=== PATIENT | female | born 1955 | race Caucasian/White ===

== ENCOUNTER 2021-10-02 14:26 | Outpatient (CLI) | payer OTHER, SELFPAY | END 2021-10-02 23:59 | disposition home or self-care (01) | LOC: BIMLAB 14:27 | PROVIDERS: PCP Internal Medicine; Referring Provider Internal Medicine; Visit Provider Internal Medicine | DX: R05.9 Cough, unspecified (principal); Z20.822 Contact with and (suspected) exposure to COVID-19 | CPT/HCPCS: 87635; U0003; U0005 ==

== ENCOUNTER → 2021-10-22 | Outpatient (CLI) | payer OTHER, SELFPAY ==
--- NOTE | 2021-10-22 13:51 | BI_ITS ---
MAMMOGRAPHY - BILATERAL SCREENING REASON FOR EXAM: Female, 66 years old. Routine annual screening examination. PERTINENT HISTORY: Personal history of breast cancer. Prior right lumpectomy and radiation treatment. Remote left excisional breast biopsy. TECHNIQUE: Digital bilateral breast fidelina (3D mammographic acquisition) in the CC and MLO projections. 2-D mediolateral oblique (MLO) and craniocaudad (CC) views of both breasts were obtained. CAD: Full Field Digital Mammography with Computer Added Detection was performed. COMPARISON: Comparison is made with prior outside examination dated 12/07/2019. FINDINGS: Breast Composition: There are scattered areas of fibroglandular density. There are no dominant masses or suspicious calcifications. The patient is status post lumpectomy in the upper lateral aspect of the right breast with resultant breast deformity. No other significant abnormalities are identified. There has been no significant change since the prior study. BI/SCRN MAMM (CAD)W/FIDELINA BILAT IMPRESSION: Stable bilateral screening mammogram. Yearly follow-up mammogram recommended. (A) ASSESSMENT CATEGORY: BIRADS Category 2: Benign. A letter regarding these results will be sent to the patient by the facility within 30 days. Approximately 10% of breast cancers are not detected by mammography. A normal mammogram should not delay biopsy of a clinically suspicious abnormality. [id number] Electronically Signed: Xavier Sierra MD at 15:26 EDT ,
== END | disposition home or self-care (01) ==
PROVIDERS: PCP Internal Medicine; Visit Provider Internal Medicine
DX: Z12.31 Encounter for screening mammogram for malignant neoplasm of breast (principal); Z85.3 Personal history of malignant neoplasm of breast
CPT/HCPCS: 77063; 77067

== ENCOUNTER → 2022-08-31 | Outpatient (CLI) | payer MEDICARE, SELFPAY ==
[2022-08-31 09:19] LABS: Absolute Lymphocyte Count 2.75 X10^3/uL (0.83-4.51); Absolute Neutrophil Count 3.7 X10^3/uL (2.0-7.7); Basophil# 0.07 X10^3/uL; Basophil% 0.9 % (0-1); Eosinophils% 3.9 % (0-5); Hemoglobin 15.6 g/dL (12.0-15.0); Lymphocyte # 2.75 X10^3/ul (0.83-4.51); Lymphocyte % 36.1 % (19-41); Mean Corp Hgb Conc 33.2 g/dL (32-36); Mean Corpuscular Hgb 29.7 pg (27.0-32.0); Mean Corpuscular Volume 89.4 fL (81-99); Mean Platelet Vol. 10.8 fl (6.2-12.0); Monocyte% 10.5 % (0-10); NRBC Flagged by Analyzer 0 % (0-5); Neutrophil # 3.67 X10^3/uL (2.7-7.7); Neutrophil % 48.2 % (47-70); Platelet Count 305 K/mm3 (150-450); RBC Distribution Width CV 12.5 % (11.6-14.6); RBC Distribution Width SD 40.8 fl (35.1-43.9); Red Blood Count 5.26 M/mm3 (4.2-5.4); White Blood Count 7.6 K/mm3 (4.4-11.0)
[2022-08-31 09:50] LABS: Vitamin D,25 Hydroxy 38.1 ng/mL
[2022-08-31 09:57] LABS: ALB/GLOB Ratio 0.9 RATIO (0.9-2.4); AST(SGOT) 36 U/L (15-37); Alanine Aminotransfer ALT/SGPT 60 U/L (13-56); Albumin, Serum 3.6 g/dL (3.2-5.0); Alkaline Phosphatase 85 U/L (45-117); Anion Gap 7 (5-15); BUN 11 mg/dL (7-18); BUN/Creat Ratio 16.2 RATIO (10-20); Calcium,Total 8.9 mg/dL (8.5-10.1); Chloride 106 mmol/L (98-107); Cholesterol 202 mg/dL (200); Creatinine, Serum 0.68 mg/dL (0.55-1.02); EST Glomerular Filtration Rate 93 mL/min (>60); Est Glom Filt Rate - Afr Amer 112 mL/min (>60); Globulin 3.8 g/dL (2.2-4.2); Glucose 167 mg/dL (74-106); High Density Lipoprotein 43 mg/dL; Potassium 4.1 mmol/L (3.5-5.1); Protein, Total 7.4 g/dL (6.4-8.2); Sodium Level 140 mmol/L (136-145); Thyroid Stim Hormone (TSH) 3.36 uIU/mL (0.358-3.74); Triglycerides 198 mg/dL; Very Low Density Lipoprotein 40 mg/dL (5-40)
== END | disposition home or self-care (01) ==
LOC: PAVLAB 09:03
PROVIDERS: PCP Internal Medicine; Referring Provider Internal Medicine; Visit Provider Internal Medicine
DX: I10 Essential (primary) hypertension (principal); E11.9 Type 2 diabetes mellitus without complications; E78.5 Hyperlipidemia, unspecified
CPT/HCPCS: 36415; 80053; 80061; 82306; 84443; 85025

== ENCOUNTER 2022-10-12 06:19 | Day surgery (SDC) | payer MEDICARE, SELFPAY ==
--- NOTE | 2022-10-12 06:45 | PCM.HP.BLA ---
History and Physical Date of Admission: 10/12/22 Visit Reasons:?CHANGE IN BOWEL HABITS Chief Complaint: change? in bowel habits Allergies amoxicillin [From Augmentin] Allergy (Severe, Verified 08/19/22 14:58) hivesclavulanic acid [From Augmentin] Allergy (Severe, Verified 08/19/22 14:58) hivesiodine Allergy (Mild, Verified 08/19/22 14:58) rashcodeine Allergy (Unknown, Verified 08/19/22 14:58) Vomiting PFSH Medical History? Back problem Breast cancer Diabetes Headache, migraine Heart murmur History of kidney stones History of pneumonia Hives Hypertension Seasonal allergies Surgical History? History of bladder suspension procedure History of History of endometrial ablation Family History? Mother Alcoholism Anxiety DiabetesGrandfather AlcoholismAunt Alcoholism Breast cancerUncle AlcoholismGrandmother Colon cancer MelanomaFather Myocardial infarction,? Onset Age: 62 Social History? Smoking Status:? Never smoker alcohol intake:? never substance use type:? does not use what type of physical activity do you participate in:? none HPI HPI HPI: 67-year-old female.? She is referred by Dr. Dyana Hernandez for surgical consultation regarding a change of bowel habit.? Written copy my surgical consult recommendations will return to him.? By report the patient has not had a previous colonoscopy.? 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 She had a remote colonoscopy maybe 15 years ago.? Over the past year she has had intermittent bouts which are watery diarrhea.? She will intermittently have some constipation.? She has any weight change.? No bright red blood per rectum or melena.? Family history is negative for colon cancer.? She has never had any DVT. Previous surgical history includes tubal ligation and bladder suspension and uterine ablation and C-sections x2 ROS General General: No weight change, appetite, fatigue, colon cancer, breast cancer or weakness HEENT HEENT: No difficulty swallowing, eye injury, eye surgery, swollen glands or hoarseness Endo Endocrine: No thyroid disease, diabetes mellitus, thyroid cancer, Hair loss, heat intolerance or cold intolerance Skin Skin: No rash or changing moles Breast Breast: No left breast lump, right breast lump, nipple discharge, breast pain, abnormal mammogram, abnormal US or breast enlargement Musc Musculoskeletal: No back problems, arthritis, rheumatoid arthritis, gout or joint pain Cardio Cardiovascular: No murmur, pacemaker, heart disease, atrial fibrillation, high blood pressure, heart attack, heart stent, palpitations, shortness of breat with exertion or chest pain Psych Psychiatric: No depression, anxiety or hearing voices Resp Respiratory: No shortness of breath, No sleep apnea, No cough, No COPD, No asthma, No emphysema and No wheezing Gastro Gastrointestinal: No abdominal pain, No nausea or vomiting, No diarrhea, No constipation, No blood in stool, No acid reflux, No hemorrhoids, No ulcers, No gallbladder problem and No black,tarry stools Jovani Hematologic: No blood thinners, No blood disorders, No bleeding, No anemia and No blood clots Neuro Neurologic: No system reviewed and no additional complaints, except as documented, No as per HPI, No abnormal gait, No abnormal hearing, No abnormal movements, No abnormal speech, No behavioral changes, No burning sensations, No confusion, No convulsions, No disequilibrium, No dizziness, No localized weakness, No frequent falls, No headache(s), No lack of coordination, No loss of vision, No memory loss, No numbness, No other visual disturbances, No radicular pain, No restless legs, No sensory deficit, No syncope, No tingling, No tremor(s), No weakness and No other Exam Const General: cooperative, healthy appearing, comfortable and no acute distress Nutritional Appearance: average body habitus Orientation: alert and awake Eyes General: appearance normal, both eyes and all related structures Neck Neck: normal visual inspection Chest Chest palpation & inspection: normal inspection of the chest Resp Effort & Inspection: normal respiratory effort Auscultation: clear to auscultation bilaterally Cardio Rate: regular rate Rhythm: regular rhythm GI Inspection: normal to inspection Musc Cervical Spine: normal cervical lordosis Skin General: no rashes or lesions noted Neuro General: patient alert, patient awake and patient oriented x3 Extrem General: no calf tenderness Psych Appearance: grossly normal Assessment and Plan Assessment and Plan (1) Change in bowel movement: ?Status:?Acute ?Plan: 67-year-old female with 1 year history of change of bowel habits with diarrhea and intermittent constipation.? These are sporadic episodes.? Remote history of Cologuard and even a remote history of colonoscopy.? No family history. She presents with her today who is just resolving a bout of diverticulitis.? They have recently moved to the area. I propose for her a colonoscopy with possible biopsy or polypectomy as indicated.? She is aware of the technique, benefit, risk and alternatives.? She has had an opportunity ask and have questions answered.? We will schedule and expedite her care.? I very much appreciate the kind option of assisting with her surgical care. Copy: Dr. Dyana Walton M.D., F.A.C.S. I have examined the patient and the H&P has been reviewed. There are no clinical changes since date of exam. Pio Walton M.D., F.A.C.S.
[2022-10-12 06:51] VITALS: BP 131/87; PULSE 93; RESP 16; TEMP 36.2; O2SAT 98; BMI 27.8
[2022-10-12] MEDS: Lactated Ringers 1,000 ML 15 ML IV (06:53)
[2022-10-12 07:15] LABS: Bedside Glucose 151 mg/dL (74-106)
[2022-10-12 07:36] VITALS: BP 104/69; BP 131/87; PULSE 79; RESP 18; TEMP 36.4; O2SAT 95
--- NOTE | 2022-10-12 07:37 | OP.COLON_ITS ---
Patient Name: Amy Tijerina Procedure Date: 10/12/2022 7:07 AM Date of : 1955 Age: 67 Procedure: Colonoscopy Indications: Screening for colorectal malignant neoplasm Providers: Pio Walton MD Medicines: See the Anesthesia note for documentation of the administered medications Patient Profile: Last Colonoscopy: more than 10 years ago. Complications: No immediate complications. Procedure: Pre-Anesthesia Assessment: - Prior to the procedure, a History and Physical was performed, and patient medications and allergies were reviewed. The patient's tolerance of previous anesthesia was also reviewed. The risks and benefits of the procedure and the sedation options and risks were discussed with the patient. All questions were answered, and informed consent was obtained. Prior Anticoagulants: The patient has taken no previous anticoagulant or antiplatelet agents. ASA Grade Assessment: II - A patient with mild systemic disease. After reviewing the risks and benefits, the patient was deemed in satisfactory condition to undergo the procedure. After I obtained informed consent, the scope was passed under direct vision. Throughout the procedure, the patient's blood pressure, pulse, and oxygen saturations were monitored continuously. The colonoscope was introduced through the anus and advanced to the cecum, identified by appendiceal orifice and ileocecal valve. The colonoscopy was performed without difficulty. The patient tolerated the procedure well. The quality of the bowel preparation was good. The ileocecal valve and the appendiceal orifice were photographed. Scope In: 7:17:32 AM Scope Withdrawal Time 0 hours 7 minutes 22 seconds Scope Out: 7:29:50 AM Total Procedure Duration Time 0 hours 12 minutes 18 seconds Findings: The digital rectal exam findings include non-thrombosed external hemorrhoids, non-thrombosed internal hemorrhoids and internal hemorrhoids that prolapse with straining, but spontaneously regress to the resting position (Grade II). A few diverticula were found in the sigmoid colon. The exam was otherwise without abnormality. Impression: - Non-thrombosed external hemorrhoids, non-thrombosed internal hemorrhoids and internal hemorrhoids that prolapse with straining, but spontaneously regress to the resting position (Grade II) found on digital rectal exam. - Diverticulosis in the sigmoid colon. - The examination was otherwise normal. - No specimens collected. Recommendation: - Discharge patient to home. - Resume previous diet. - Continue present medications. - Repeat colonoscopy in 10 years for screening purposes. Posterior internal and external hemorrhoid noted. Additional internal hemorrhoids noted. Likely the source of the patient's complaint of anal pressure. No suggestion for thrombosis at this time. Will recommend conservative measures like fiber supplementation at this time. Procedure Code(s): --- Professional --- 75651, Colonoscopy, flexible; diagnostic, including collection of specimen(s) by brushing or washing, when performed (separate procedure) Diagnosis Code(s): --- Professional --- Z12.11, Encounter for screening for malignant neoplasm of colon K64.1, Second degree hemorrhoids K64.4, Residual hemorrhoidal skin tags K57.30, Diverticulosis of large intestine without perforation or abscess without bleeding CPT copyright 2017 [employer]. All rights reserved. The codes documented in this report are preliminary and upon town planner review may be revised to meet current compliance requirements. Pio Walton MD 10/12/2022 7:37:26 AM This report has been signed electronically. Number of Addenda: 0 Note Initiated On: 10/12/2022 7:07 AM
--- NOTE | 2022-10-12 07:38 | OP.CCLET_ITS ---
10/12/2022 Dyana Hernandez [facility] [address] [place] [address] Re : Colonoscopy procedure for Amy Tijerina Dear Dr. Hernandez This procedure was performed on Wednesday, October 12, 2022. My impressions and recommendations are as follows: Impressions : - Non-thrombosed external hemorrhoids, non-thrombosed internal hemorrhoids and internal hemorrhoids that prolapse with straining, but spontaneously regress to the resting position (Grade II) found on digital rectal exam. - Diverticulosis in the sigmoid colon. - The examination was otherwise normal. - No specimens collected. Recommendations : - Discharge patient to home. - Resume previous diet. - Continue present medications. - Repeat colonoscopy in 10 years for screening purposes. Posterior internal and external hemorrhoid noted. Additional internal hemorrhoids noted. Likely the source of the patient's complaint of anal pressure. No suggestion for thrombosis at this time. Will recommend conservative measures like fiber supplementation at this time. My findings are described in the full procedure note, which is enclosed. If I can be of further assistance, please feel free to contact me at Doctor phone number(s): Work: . Sincerely, Pio Walton MD 10/12/2022 7:37:26 AM This report has been signed electronically.
[2022-10-12 07:39] VITALS: BP 115/81; BP 131/87; PULSE 84; RESP 18; O2SAT 95
[2022-10-12 07:45] VITALS: BP 131/87; BP 91/58; PULSE 78; RESP 18; O2SAT 95
[2022-10-12 07:51] VITALS: BP 110/75; BP 131/87; PULSE 71; RESP 18; TEMP 36.2; O2SAT 97
[2022-10-12 08:09] VITALS: BP 131/87
== END 2022-10-12 08:20 | disposition home or self-care (01) ==
LOC: EN 06:21 → AC 06:22
PROVIDERS: PCP Internal Medicine; Referring Provider Internal Medicine; Visit Provider Surgery
PROC: 0DJD8ZZ Inspection of Lower Intestinal Tract, Via Natural or Artificial Opening Endoscopic (ICD-10-PCS; CPT 45378; principal; 2022-10-12 07:25)
DX: Z12.11 Encounter for screening for malignant neoplasm of colon (principal); E11.9 Type 2 diabetes mellitus without complications; Z79.4 Long term (current) use of insulin; K64.4 Residual hemorrhoidal skin tags; K57.30 Diverticulosis of large intestine without perforation or abscess without bleeding; K64.1 Second degree hemorrhoids; E78.5 Hyperlipidemia, unspecified; I10 Essential (primary) hypertension; Z79.899 Other long term (current) drug therapy
CPT/HCPCS: 45378; 82962; J7120; J2405

== ENCOUNTER → 2022-10-23 | Outpatient (CLI) | payer MEDICARE, SELFPAY ==
--- NOTE | 2022-10-23 10:13 | BI_ITS ---
MAMMOGRAPHY - BILATERAL SCREENING REASON FOR EXAM: Female, 67 years old. Routine annual screening examination. PERTINENT HISTORY: Personal history of breast cancer. Prior right lumpectomy with radiation therapy. TECHNIQUE: Digital bilateral breast fidelina (3D mammographic acquisition) in the CC and MLO projections. 2-D mediolateral oblique (MLO) and craniocaudad (CC) views of both breasts were obtained. CAD: Full Field Digital Mammography with Computer Added Detection was performed. COMPARISON: Comparison is made with prior examination dated October 22, 2021. FINDINGS: Breast Composition: There are scattered areas of fibroglandular density. Questionable focal area of architectural distortion in the central deep aspect of the left breast. Correlation with ultrasound is recommended. Once again, the patient is status post lumpectomy in the upper lateral aspect of the right breast with resultant right breast deformity and scarring at the surgical site.. There has been no change. Stable benign appearing left axillary nodes. No other significant abnormalities are identified. BI/SCRN MAMM (CAD)W/FIDELINA BILAT IMPRESSION: Questionable focal area of architectural distortion in the central deep aspect of the left breast. Correlation with ultrasound is recommended. ASSESSMENT CATEGORY: BIRADS Category 0: Incomplete. Need additional imaging evaluation. A letter regarding these results will be sent to the patient by the facility within 30 days. Approximately 10% of breast cancers are not detected by mammography. A normal mammogram should not delay biopsy of a clinically suspicious abnormality. [id number] Electronically Signed: Xavier Sierra MD at 10:54 EDT ,
== END | disposition home or self-care (01) ==
LOC: OPBI 10:13
PROVIDERS: PCP Internal Medicine; Visit Provider Internal Medicine
DX: Z12.31 Encounter for screening mammogram for malignant neoplasm of breast (principal)
CPT/HCPCS: 77063; 77067

== ENCOUNTER 2023-01-05 13:22 | Emergency (ER) | payer MEDICARE, SELFPAY ==
[2023-01-05 13:23] VITALS: BP 164/80; PULSE 104; RESP 18; TEMP 35.9; O2SAT 95
--- NOTE | 2023-01-05 14:12 | RAD_ITS ---
STUDY: X-RAY - LEFT KNEE REASON FOR EXAM: Female, 67 years old. Injury/Pain TECHNIQUE: 4 view(s) of the knee. COMPARISON: None. FINDINGS: Normal visualized distal femur. Normal visualized proximal tibia and fibula. Normal proximal tibiofibular articulation. Normal medial femorotibial compartment. Normal lateral femorotibial compartment. Normal patellofemoral articulation. Joint effusion. Soft tissue swelling. RAD/Knee 4 or More Views IMPRESSION: Soft tissue swelling and joint effusion. Electronically Signed: Xavier Sierra MD at 15:13 EDT ,
--- NOTE | 2023-01-05 14:13 | RAD_ITS ---
STUDY: X-RAY - LEFT FEMUR REASON FOR STUDY: Female, 67 years old. Injury/Pain TECHNIQUE: 4 view(s) of the femur. COMPARISON: None. FINDINGS: Normal visualized femur. Soft tissue swelling. Moderate knee joint effusion. RAD/Femur Min 2 Views IMPRESSION: Soft tissue swelling and joint effusion. Electronically Signed: Xavier Sierra MD at 15:12 EDT ,
--- NOTE | 2023-01-05 14:13 | RAD_ITS ---
STUDY: X-RAY - LEFT TIBIA AND FIBULA REASON FOR EXAM: Female, 67 years old. Injury/Pain TECHNIQUE: 2 view(s) of the tibia and fibula were obtained. COMPARISON: None. FINDINGS: Normal visualized tibia. Normal visualized fibula. The soft tissue structures are unremarkable. RAD/Tibia & Fibula 2 Views IMPRESSION: Normal x-ray examination of the tibia and fibula. Electronically Signed: Xavier Sierra MD at 15:13 EDT ,
[2023-01-05] MEDS: Morphine 4 MG/ML Syringe IM (14:18)
[2023-01-05] MEDS: Ondansetron 4 MG/2 ML Vial IV (14:18)
[2023-01-05 14:22] VITALS: BMI 29.9
--- NOTE | 2023-01-05 14:29 | EDS_ITS ---
HPI History of Present Illness Chief Complaint: Lower Extremity Injury Informant: patient Narrative Narrative: Patient is a 67-year-old female with history of hypertension and yqg-azdjmce-eaxucgmxy diabetes mellitus presenting for left knee injury. Patient states around 1 PM she was outside when one of her large dogs ran towards her and struck her knee. She had immediate pain in her knee. This caused her to fall to the ground however it was because of her knee pain. She did not actually lose her balance. She not hit her head. She has pain diffusely in her knee as well as some swelling. She has some intermittent tingling of her toes most concentrated in the great toe. She is not on any blood thinners. She states she cannot move her knee but feels that its not because of pain but because she cannot actually move it. She is having significant pain in her knee however. Patient does not recall hyperextending her knee but states it was feels like that happened. [facility] Medical History Back problem Breast cancer Diabetes Dietary restriction Headache, migraine Heart murmur History of kidney stones History of pneumonia Hives Hypertension Non-smoker Seasonal allergies Wears glasses Home Medications calcium carbonate 500 mg calcium (1,250 mg) chewable tablet (Calcium 500) 500 mg PO DAILY 07/24/21 [History Last Taken Unknown] coenzyme Q10 10 mg capsule (Co Q-10) 10 mg PO DAILY 07/24/21 [History Last Taken Unknown] multivitamin 1 tab PO DAILY 07/24/21 [History Last Taken Unknown] omega 2-nok-hmt-fish oil 60 mg-90 mg-500 mg capsule (Fish Oil) 1 cap PO DAILY 07/24/21 [History Last Taken 10/01/22] losartan 50 mg tablet 50 mg PO DAILY #90 tabs 08/19/22 [Rx Last Taken Unknown] metformin 500 mg tablet,extended release 24 hr 500 mg PO DAILY #90 tabs 08/19/22 [Rx Last Taken Unknown] phytoestrogen 1 cap PO BID 08/19/22 [History Last Taken 10/01/22] ondansetron 4 mg disintegrating tablet 4 mg PO Q6H PRN nausea and vomiting #20 tabs 01/05/23 [Rx Last Taken Unknown] oxycodone-acetaminophen 5 mg-325 mg tablet (Percocet) 1 tab PO Q6H PRN pain 3 days #12 tabs 01/05/23 [Rx Last Taken Unknown] Allergy/AdvReac Type Severity Reaction Status Date / Time amoxicillin [From Augmentin] Allergy Severe hives Verified 01/05/23 13:24 clavulanic acid Allergy Severe hives Verified 01/05/23 13:24 [From Augmentin] iodine Allergy Mild rash Verified 01/05/23 13:24 codeine Allergy Unknown Vomiting Verified 01/05/23 13:24 latex Allergy Other Verified 01/05/23 13:24 povidone-iodine Allergy Rash Verified 01/05/23 13:24 [From Betadine] Family History Mother Alcoholism Anxiety Diabetes Grandfather Alcoholism Aunt Alcoholism Breast cancer Uncle Alcoholism Grandmother Colon cancer Melanoma Father Myocardial infarction, Onset Age: 62 Surgical History History of bladder suspension procedure History of History of endometrial ablation Hx of colonoscopy Social History Smoking Status: Never smoker alcohol intake: never substance use type: does not use what type of physical activity do you participate in: none ROS ROS ED Eyes Eyes: Denies change in vision Musculoskeletal Musculoskeletal: Reports other Details: Left knee pain Integumentary Denies Abrasions or rash Neurologic Neurologic: Reports paresthesias LLE; Denies weakness Psychiatric Psychiatric: Denies anxiety or depression Hematologic/Lymphatic Hematologic/Lymphatic: Denies easy bleeding or easy bruising EXAM Physical Exam Const Vital Signs: 01/05/23 13:23 01/05/23 16:45 Temperature 96.7 F L Temperature Source Temporal Pulse Rate 104 H 74 Respiratory Rate 18 16 Blood Pressure 164/80 H 167/88 H Blood Pressure Mean 108 114 Pulse Ox 95 95 Oxygen Delivery Method Room Air Room Air Positive well nourished and well developed General Appearance ED: well developed and NAD HEENT atraumatic Neck full ROM and supple Chest Wall inspection of chest normal and palpation of chest normal Resp normal respiratory effort Cardio regular rate and regular rhythm Cardio Narrative: 2+ DP and PT pulses on the left Extremity Extremity Narrative: Subtle edema of the right knee. Mild tenderness palpation over the proximal tibia as well as the medial and posterior aspect of the knee. No significant effusion present. Patient is not able to raise her leg off the bed. No short arc range of motion however she does have pain when I try to flex the knee. Does not really tolerate range of motion testing. Does point to her distal femur as an area of pain as well however it is less. No pain of the hip with range of motion. Neuro oriented x3, moves all extremities and no sensory deficits noted Sensorium / Orientation: alert Psych mental status grossly normal Skin no wounds MDM MDM MDM Narrative Medical decision making narrative: Patient is evaluated for left knee injury. She has effusion knee and has lost her extensor mechanism. Has good distal pulses. Neurovascular intact. Is given morphine for pain control she is also given Zofran in the emergency room. X-ray of the knee, femur and tib-fib do not show any acute bony process. Is reviewed by myself as well as radiology. Case discussed with Ortho on-call, Dr. aFrrell, who will see the patient in the office in the next day or 2 with plan for surgical repair later in the week. He feels that this can be managed outpatient. Patient is comfortable with going home and feels safe with her ADLs at home. Will be started on Percocet as well as Zofran as needed for symptom control. Patient is placed in a knee immobilizer. Counseled return precautions. Discharged home in stable and improved condition. Radiography Diagnostic Testing: Clinical Impression(s) from Imaging Studies Knee X-Ray 01/05/23 14:12 IMPRESSION: Soft tissue swelling and joint effusion. Electronically Signed: Xavier Sierra MD at 15:13 EDT , Femur X-Ray 01/05/23 14:13 IMPRESSION: Soft tissue swelling and joint effusion. Electronically Signed: Xavier Sierra MD at 15:12 EDT , Tibia/Fibula X-Ray 01/05/23 14:13 IMPRESSION: Normal x-ray examination of the tibia and fibula. Electronically Signed: Xavier Sierra MD at 15:13 EDT , Discharge Plan Triage Chief Complaint: Lower Extremity Injury ED Provider: Ami Santamaria Dx/Rx/DC Orders Clinical Impression: Quadriceps tendon rupture Instructions: ED Knee Immobilizer, ED Knee Effusion Prescriptions: New oxycodone-acetaminophen [Percocet] 5-325 mg tablet 1 tab PO Q6H PRN (Reason: pain) 3 Days Qty: 12 0RF ondansetron 4 mg tablet,disintegrating 4 mg PO Q6H PRN (Reason: nausea and vomiting) Qty: 20 0RF No Action multivitamin Tablet 1 tab PO DAILY coenzyme Q10 [Co Q-10] 10 mg capsule 10 mg PO DAILY calcium carbonate [Calcium 500] 500 mg calcium (1,250 mg) tablet,chewable 500 mg PO DAILY omega 5-fjh-qpt-fish oil [Fish Oil] 60-90-500 mg capsule 1 cap PO DAILY phytoestrogen 1 cap PO BID losartan 50 mg tablet 50 mg PO DAILY Qty: 90 3RF metformin 500 mg tablet extended release 24 hr 500 mg PO DAILY Qty: 90 3RF Primary Care Provider: Dyana Hernandez Referrals: Dyana Hernandez MD [Primary Care Provider] - Jacobo Farrell DO [Med Staff - Active Staff] - As soon as possible Activity Restrictions/Additional Instructions: Based on your physical exam and your injury I suspect you have a quadricep tendon rupture. I do not see any acute abnormalities or fractures on your x- ray. There is fluid around the knee joints. Please follow-up with orthopedics as soon as possible (in the next few days). Likely this will require surgery. Wear the knee immobilizer at all time. You may take it off when you were taking a bath/shower. Disposition Disposition: Home, Self Care Discharge Date/Time: 01/05/23 18:04
[2023-01-05] MEDS: Ketorolac 15 MG/ML Vial IV (16:39)
[2023-01-05] MEDS: oxyCODONE 5 MG Tablet PO (16:39)
[2023-01-05 16:45] VITALS: BP 167/88; PULSE 74; RESP 16; O2SAT 95
== END 2023-01-05 18:04 | disposition home or self-care (01) ==
PROVIDERS: Emergency Provider Emergency Medicine; PCP Internal Medicine; Visit Provider Emergency Medicine
DX: S76.112A Strain of left quadriceps muscle, fascia and tendon, initial encounter (principal); E11.9 Type 2 diabetes mellitus without complications; M25.462 Effusion, left knee; W54.1XXA Struck by dog, initial encounter; I10 Essential (primary) hypertension; Z79.84 Long term (current) use of oral hypoglycemic drugs; Z79.899 Other long term (current) drug therapy
CPT/HCPCS: 73552; 73564; 73590; 96372; 96374; 96375; 99283; A4216; J2405

== ENCOUNTER → 2023-10-25 | Outpatient (CLI) | payer MEDICARE, SELFPAY ==
--- NOTE | 2023-10-25 12:24 | BI_ITS ---
MAMMOGRAPHY - BILATERAL SCREENING REASON FOR EXAM: Female, 68 years old. Routine annual screening examination. PERTINENT HISTORY: Personal history of breast cancer. Prior right lumpectomy with radiation. Prior left excisional breast biopsy. TECHNIQUE: Digital bilateral breast fidelina (3D mammographic acquisition) in the CC and MLO projections. 2-D mediolateral oblique (MLO) and craniocaudad (CC) views of both breasts were obtained. CAD: Full Field Digital Mammography with Computer Added Detection was performed. COMPARISON: Comparison is made with prior study October 15, 2022 and October 22, 2021. FINDINGS: Breast Composition: There are scattered areas of fibroglandular density. There are no dominant masses or suspicious calcifications. Stable postoperative changes in the upper lateral aspect of the right breast with resultant breast deformity and scarring at the operative site. No other significant abnormalities are identified. There has been no significant change since the prior study. BI/SCRN MAMM (CAD)W/FIDELINA BILAT IMPRESSION: Stable bilateral screening mammogram. Yearly follow-up mammogram recommended. (A) ASSESSMENT CATEGORY: BIRADS Category 2: Benign. A letter regarding these results will be sent to the patient by the facility within 30 days. Approximately 10% of breast cancers are not detected by mammography. A normal mammogram should not delay biopsy of a clinically suspicious abnormality. [id number] Electronically Signed: Xavier Sierra MD at 13:26 EDT ,
== END | disposition home or self-care (01) ==
LOC: OPBI 12:23
PROVIDERS: PCP Internal Medicine; Referring Provider Internal Medicine; Visit Provider Internal Medicine
DX: Z12.31 Encounter for screening mammogram for malignant neoplasm of breast (principal); Z85.3 Personal history of malignant neoplasm of breast
CPT/HCPCS: 77063; 77067

== ENCOUNTER → 2024-02-15 | Outpatient (CLI) | payer MEDICARE, SELFPAY ==
[2024-02-15 09:00] LABS: Absolute Lymphocyte Count 2.31 X10^3/uL (0.83-4.51); Absolute Neutrophil Count 3.2 X10^3/uL (2.0-7.7); Basophil# 0.07 X10^3/uL; Eosinophil# 0.35 X10^3/uL; Eosinophils% 5.2 % (0-5); Hematocrit 45.5 % (37-47); Hemoglobin 15.5 g/dL (12.0-15.0); Lymphocyte # 2.31 X10^3/ul (0.83-4.51); Lymphocyte % 34.6 % (19-41); Mean Corp Hgb Conc 34.1 g/dL (32-36); Mean Corpuscular Hgb 29.8 pg (27.0-32.0); Mean Corpuscular Volume 87.5 fL (81-99); Mean Platelet Vol. 10.2 fl (6.2-12.0); Monocyte# 0.77 X10^3/uL; Monocyte% 11.5 % (0-10); NRBC Flagged by Analyzer 0 % (0-5); Neutrophil # 3.15 X10^3/uL (2.7-7.7); Neutrophil % 47.4 % (47-70); Platelet Count 296 K/mm3 (150-450); RBC Distribution Width CV 12.7 % (11.6-14.6); RBC Distribution Width SD 40.6 fl (35.1-43.9); White Blood Count 6.7 K/mm3 (4.4-11.0)
[2024-02-15 09:26] LABS: AST(SGOT) 26 U/L (15-37); Alanine Aminotransfer ALT/SGPT 48 U/L (13-56); Albumin, Serum 3.6 g/dL (3.2-5.0); Alkaline Phosphatase 80 U/L (45-117); Anion Gap 3 (5-15); BUN 11 mg/dL (7-18); BUN/Creat Ratio 18.1 RATIO (10-20); Calcium,Total 8.9 mg/dL (8.5-10.1); Chloride 110 mmol/L (98-107); Cholesterol 225 mg/dL (200); Creatinine, Serum 0.61 mg/dL (0.55-1.02); EST Glomerular Filtration Rate 105 mL/min (>60); Est Glom Filt Rate - Afr Amer 127 mL/min (>60); Globulin 3.6 g/dL (2.2-4.2); Glucose 154 mg/dL (74-106); High Density Lipoprotein 44 mg/dL; Magnesium 2.2 mg/dL (1.6-2.6); Potassium 3.9 mmol/L (3.5-5.1); Protein, Total 7.2 g/dL (6.4-8.2); Sodium Level 138 mmol/L (136-145); Triglycerides 165 mg/dL; Very Low Density Lipoprotein 33 mg/dL (5-40)
[2024-02-15 09:41] LABS: Hemoglobin A1c 6.3 % (3.8-5.6)
[2024-02-15 10:08] LABS: Vitamin B12 566 pg/mL (211-911); Vitamin D,25 Hydroxy 39.8 ng/mL
== END | disposition home or self-care (01) ==
LOC: PAVLAB 08:35
PROVIDERS: PCP Internal Medicine; Referring Provider Internal Medicine; Visit Provider Internal Medicine
DX: I10 Essential (primary) hypertension (principal); E11.9 Type 2 diabetes mellitus without complications; Z13.220 Encounter for screening for lipoid disorders; E53.8 Deficiency of other specified B group vitamins; E55.9 Vitamin D deficiency, unspecified; J30.2 Other seasonal allergic rhinitis; R73.9 Hyperglycemia, unspecified
CPT/HCPCS: 36415; 80053; 80061; 82306; 82607; 83036; 83735; 84443; 85025